=== PATIENT | female | born 1950 | race Caucasian/White ===

== ENCOUNTER 2021-11-20 05:15 | Inpatient (IN) | payer MEDICARE ==
[2021-11-20] MEDS ORDERED: Sodium Chloride 0.9% 2.5 ML Syringe FLUSH PRN (05:50)
[2021-11-20] MEDS ORDERED: Sodium Chloride 0.9% 10 ML Syringe FLUSH PRN (05:50)
[2021-11-20] MEDS ORDERED: Lactated Ringers 1,000 ML IV SCH (06:00)
[2021-11-20] MEDS ORDERED: fentaNYL 250 MCG/5 ML SDV ONE (07:13)
[2021-11-20] MEDS ORDERED: Propofol 200 MG/20 ML SDV ONE (07:13)
[2021-11-20] MEDS ORDERED: Octyl 2-Cyanoacrylate 1 Tube ONE (07:16)
[2021-11-20] MEDS ORDERED: Bupivacaine 0.25%/EPINEPHrine 1:200,000 10 ML SDV ONE (07:16)
[2021-11-20] MEDS ORDERED: Famotidine 20 MG/2 ML SDV IVPUSH ONE (07:37)
[2021-11-20] MEDS ORDERED: Rocuronium 100 MG/10 ML MDV ONE (09:08)
[2021-11-20] MEDS ORDERED: Ondansetron 4 MG/2 ML SDV ONE (09:08)
[2021-11-20] MEDS ORDERED: Sugammadex Sodium 200 MG/2 ML VIAL ONE (09:08)
[2021-11-20] MEDS ORDERED: ePHEDrine 50 MG/ML SDV ONE (09:08)
[2021-11-20] MEDS ORDERED: fentaNYL 100 MCG/2 ML SDV ONE (09:09)
[2021-11-20] MEDS ORDERED: HYDROmorphone 2 MG/ML Syringe ONE (10:00)
[2021-11-20] MEDS ORDERED: Ondansetron 4 MG/2 ML SDV IVPUSH PRN (10:56)
[2021-11-20] MEDS ORDERED: Acetaminophen/oxyCODONE 325-5 MG Tab PO PRN ×2 (10:57→10:58)
[2021-11-20] MEDS ORDERED: Docusate Sodium 100 MG Cap PO PRN (10:58)
[2021-11-20 11:40] LABS: CARBON DIOXIDE,CO2 22.5 mmol/L (21.0-32.0); POTASSIUM,K 4.3 mmol/L (3.5-5.1)
[2021-11-20] MEDS: cefOXitin 1 GM in Premix Bag 1 BAG IV SCH ×3 (12:11→22:59)
[2021-11-20] MEDS: Lactated Ringers 1,000 ML IV SCH (16:10)
[2021-11-21] MEDS: Lactated Ringers 1,000 ML IV SCH ×2 (00:56→10:16)
[2021-11-21] MEDS: cefOXitin 1 GM in Premix Bag 1 BAG IV SCH ×2 (04:25→11:06)
[2021-11-21 07:59] LABS: CARBON DIOXIDE,CO2 26.1 mmol/L (21.0-32.0); POTASSIUM,K 4.7 mmol/L (3.5-5.1)
== END 2021-11-21 13:10 | disposition home or self-care (01) | DRG 339 ==
LOC: MW.ED 05:15 → MW.SDS 07:36 → MW.MS 07:36 → MW.ED 07:45 → MW.ICU 10:32 → MW.SDS 11:09 → MW.ICU 11:10 → MW.MS 11-21 07:00
PROVIDERS: ADMIT Surgery; ATTEND Surgery
PROC: 0DTJ4ZZ Resection of Appendix, Percutaneous Endoscopic Approach (ICD-10-PCS; principal; 2021-11-20)
DX: K35.33 Acute appendicitis with perforation, localized peritonitis, and gangrene, with abscess (principal); K35.80 Unspecified acute appendicitis; Z79.890 Hormone replacement therapy; Z79.899 Other long term (current) drug therapy; I97.191 Other postprocedural cardiac functional disturbances following other surgery; I48.91 Unspecified atrial fibrillation; K81.1 Chronic cholecystitis; E66.9 Obesity, unspecified; Z68.32 Body mass index [BMI] 32.0-32.9, adult; R61 Generalized hyperhidrosis
CPT/HCPCS: 36415; 71045; 80053; 82553; 83735; 83880; 84484; J0131; J1170; J2370; J2405; J2704; J3010 ×2; J3490 ×4; J7120; 80048; 82947; 85025; 93005; 96361; 96374; 99283; 99284-25; A9270-GY; J0694; J7030